=== PATIENT | male | born 1940 | race Caucasian/White ===

== ENCOUNTER 2016-11-15 19:48 | Emergency (ER) | payer OTHER ==
[2016-11-15 20:30] VITALS: RESP 18; TEMP 98
[2016-11-15 21:01] VITALS: BP 125/68; PULSE 63; O2SAT 99
== END 2016-11-15 20:51 | disposition home or self-care (01) | DRG 639 ==
LOC: ED 19:48
DX: E11.649 Type 2 diabetes mellitus with hypoglycemia without coma (principal)
CPT/HCPCS: 82962; 99282; 99283